=== PATIENT | female | born 1935 | race Caucasian/White ===

== ENCOUNTER 2023-05-19 16:25 | Observation (INO) | payer OTHER, BC ==
[2023-05-19 17:40] LABS: EPITHELIAL CELLS 0-5 /hpf; URIC ACID CRYSTALS FEW /hpf (NONE SEEN)
[2023-05-19 18:10] LABS: HEMATOCRIT 33.6 % (32.4-45.2); HEMOGLOBIN 11.5 G/dL (10.7-15.3); MCH 31.6 pg (25.7-33.7); MCHC 34.1 g/dl (32.0-36.0); MEAN CELL VOLUME 92.5 fl (80-96); MEAN PLT VOLUME 9.9 fl (7.5-11.1); PLATELET COUNT 144.6 10^3/uL (134-434); RBC 3.63 10^6/uL (3.60-5.2); RDW 13.6 % (11.6-15.6); WHITE BLOOD COUNT 5.2 10^3/uL (4.0-10.8)
[2023-05-19 18:22] LABS: ALBUMIN 3.5 g/dl (3.4-5.0); BILIRUBIN,TOTAL 0.3 mg/dl (0.2-1); CALCIUM 9.1 mg/dl (8.5-10.1); POTASSIUM 4.1 mmol/L (3.5-5.1)
[2023-05-19 18:34] LABS: PLATELET ESTIMATE ADEQUATE
[2023-05-19] MEDS ORDERED: ASPIRIN 81 MG CHEWABLE TABLETS PO ONE (18:52)
[2023-05-19] MEDS ORDERED: ASPIRIN 81 MG CHEWABLE TABLETS ONE (19:19)
[2023-05-19 22:49] VITALS: RESP 18; BMI 20.7
[2023-05-20] MEDS: LEVOTHYROXINE NA 125 MCG TABLET (FP) PO SCH (06:35)
[2023-05-20 09:18] LABS: CALCIUM 8.8 mg/dl (8.5-10.1); CREATININE 0.9 mg/dl (0.6-1.3)
[2023-05-20 09:20] LABS: BASO % 0.5 % (0-2.0); EOS % 3.7 % (0-4.5); HEMATOCRIT 32.6 % (32.4-45.2); HEMOGLOBIN 10.9 GM/dL (10.7-15.3); LYMPH % 14.5 % (8-40); MCHC 33.5 g/dl (32.0-36.0); MEAN CELL VOLUME 92.4 fl (80-96); MEAN PLT VOLUME 10.5 fl (7.5-11.1); NEUT % 67.3 % (42.8-82.8); PLATELET COUNT 150 10^3/uL (134-434); RBC 3.53 M/mm3 (3.60-5.2); RDW 12.3 % (11.6-15.6); WHITE BLOOD COUNT 5.2 K/mm3 (4.0-10.0)
[2023-05-20] MEDS ORDERED: amLODIPine BESYLATE 2.5 MG TABLET (FP) PO SCH (10:00)
[2023-05-20] MEDS: ESCITALOPRAM OXALATE 10 MG TABLET PO SCH (10:14)
[2023-05-20] MEDS: OXYBUTYNIN CHLORIDE 5 MG TABLET PO SCH ×2 (10:14→21:01)
[2023-05-20] MEDS: ASPIRIN 81 MG CHEWABLE TABLETS PO SCH (10:14)
[2023-05-20] MEDS ORDERED: DONEPEZIL HCL 10 MG TABLET (FP) PO SCH (22:00)
[2023-05-20] MEDS ORDERED: ATORVASTATIN CA 40 MG TABLET (FP) PO SCH (22:00)
[2023-05-21 06:25] VITALS: PULSE 62
[2023-05-21] MEDS: LEVOTHYROXINE NA 125 MCG TABLET (FP) PO SCH (06:45)
[2023-05-21] MEDS: OXYBUTYNIN CHLORIDE 5 MG TABLET PO SCH (09:22)
[2023-05-21] MEDS: ASPIRIN 81 MG CHEWABLE TABLETS PO SCH (09:22)
[2023-05-21] MEDS: ESCITALOPRAM OXALATE 10 MG TABLET PO SCH (09:22)
[2023-05-21 11:35] VITALS: BP 136/58; TEMP 98.6
== END 2023-05-21 13:04 | disposition home or self-care (01) ==
LOC: FER 16:25 → UNDOADMOB 19:14 → FM/S 19:14
PROVIDERS: ADMIT Internal Medicine
DX: F03.90 Unspecified dementia, unspecified severity, without behavioral disturbance, psychotic disturbance, mood disturbance, and anxiety (principal); R79.89 Other specified abnormal findings of blood chemistry; I10 Essential (primary) hypertension; E03.9 Hypothyroidism, unspecified; R53.1 Weakness
CPT/HCPCS: 36415; 71046-TC-FY; 80048; 80053; 81003; 81015; 84484; 85025; 85027; 87086; 93005; 93306-TC; 97116-GP; 97162-GP; 99285-25; G0378

== ENCOUNTER 2024-05-11 01:07 | Inpatient (IN) | payer OTHER, BC ==
[2024-05-11] MEDS ORDERED: ACETAMINOPHEN 325 MG TABLET (FP) ONE (02:40)
[2024-05-11] MEDS: ACETAMINOPHEN 500 MG TABLET (FP) PO ONE (02:53)
[2024-05-11] MEDS: LIDOCAINE 4% PATCH TP ONE (02:53)
[2024-05-11 06:16] LABS: POTASSIUM 3.7 mmol/L (3.5-5.1)
[2024-05-11 06:18] LABS: ALBUMIN 3.2 g/dl (3.4-5.0); BLOOD UREA NITROGEN 28.8 mg/dL (7-18); CALCIUM 9.2 mg/dL (8.5-10.1)
[2024-05-11 06:23] LABS: BILIRUBIN,TOTAL 0.4 mg/dL (0.2-1); CREATININE 0.9 mg/dL (0.55-1.3); TOT PROT 6.5 g/dl (6.4-8.2)
[2024-05-11 06:51] LABS: BASO % 0.2 % (0-2.0); EOS % 0.3 % (0-4.5); HEMATOCRIT 37.3 % (32.4-45.2); HEMOGLOBIN 12.4 GM/dL (10.7-15.3); LYMPH % 17.7 % (8-40); MCH 31.5 pg (25.7-33.7); MCHC 33.3 g/dl (32.0-36.0); MEAN CELL VOLUME 94.8 fl (80-96); MEAN PLT VOLUME 9.7 fl (7.5-11.1); MONO % 6.8 % (3.8-10.2); PLATELET COUNT 175 10^3/uL (134-434); RBC 3.94 M/mm3 (3.60-5.2); RDW 12.4 % (11.6-15.6)
[2024-05-11] MEDS: ENOXAPARIN NA (PORCINE) 40 MG/0.4 ML DISP.SYRIN SQ SCH (10:26)
[2024-05-11] MEDS: LEVOTHYROXINE NA 112 MCG TABLET (FP) PO SCH (10:26)
[2024-05-11] MEDS: OXYBUTYNIN CHLORIDE 5 MG TABLET PO SCH (10:26)
[2024-05-11] MEDS: amLODIPine BESYLATE 2.5 MG TABLET (FP) PO SCH (10:26)
[2024-05-11] MEDS ORDERED: ACETAMINOPHEN 1000 MG/100 ML BAG IVPB PRN (10:26)
[2024-05-11 14:52] VITALS: BMI 21.4
[2024-05-11 19:40] LABS: EPI CELLS 3 /uL (0-25.1); HYALINE CASTS 0 /uL (0-3.1); PH,URINE 6.5 (5.0-8.0); URINE APPEARANCE CLEAR; URINE BACTERIA 78 /uL (0-1359); URINE BILIRUBIN NEGATIVE (NEGATIVE); URINE COLOR YELLOW; URINE GLUCOSE (UA) NEGATIVE (NEGATIVE); URINE KETONE NEGATIVE (NEGATIVE); URINE LEUK ESTERASE 1+ (NEGATIVE); URINE NITRITE NEGATIVE (NEGATIVE); URINE PROTEIN 1+ (NEGATIVE); URINE UROBILINOGEN 0.2 mg/dL (0.2-1.0); URINE WBC 4 /uL (0-25.8)
[2024-05-11 20:41] LABS: URINE RBC 156.3 /uL (0-23.9)
[2024-05-11] MEDS: ATORVASTATIN CA 40 MG TABLET (FP) PO SCH (22:16)
[2024-05-11] MEDS: LIDOCAINE PATCH REMOVAL MC SCH (22:16)
[2024-05-12 08:45] LABS: HEMATOCRIT 36.4 % (32.4-45.2); HEMOGLOBIN 12.6 GM/dL (10.7-15.3); MCH 31.9 pg (25.7-33.7); MCHC 34.7 g/dl (32.0-36.0); MEAN CELL VOLUME 91.8 fl (80-96); MEAN PLT VOLUME 9.4 fl (7.5-11.1); PLATELET COUNT 174 10^3/uL (134-434); RBC 3.96 M/mm3 (3.60-5.2); RDW 12.4 % (11.6-15.6); WHITE BLOOD COUNT 6.9 K/mm3 (4.0-10.0)
[2024-05-12 09:08] LABS: ALBUMIN 2.9 g/dl (3.4-5.0); BLOOD UREA NITROGEN 14.6 mg/dL (7-18); CALCIUM 8.8 mg/dL (8.5-10.1); MAGNESIUM 1.8 mg/dL (1.8-2.4)
[2024-05-12 09:11] LABS: CREATININE 0.8 mg/dL (0.55-1.3); PHOSPHOROUS 2.2 mg/dL (2.5-4.9)
[2024-05-12 09:13] LABS: BILIRUBIN,TOTAL 0.8 mg/dL (0.2-1); TOT PROT 6.2 g/dl (6.4-8.2)
[2024-05-12] MEDS ORDERED: ACETAMINOPHEN 1000 MG/100 ML BAG IVPB PRN (10:21)
[2024-05-12] MEDS: ACETAMINOPHEN 1000 MG/100 ML BAG IVPB SCH (12:39)
[2024-05-12] MEDS: CEFTRIAXONE 1 G/50 ML PREMIX 50 ML IVPB SCH (19:22)
[2024-05-13 08:27] LABS: HEMATOCRIT 39.1 % (32.4-45.2); HEMOGLOBIN 13.4 GM/dL (10.7-15.3); MCH 31.6 pg (25.7-33.7); MCHC 34.2 g/dl (32.0-36.0); MEAN CELL VOLUME 92.2 fl (80-96); MEAN PLT VOLUME 9.4 fl (7.5-11.1); PLATELET COUNT 167 10^3/uL (134-434); RBC 4.24 M/mm3 (3.60-5.2); RDW 12.6 % (11.6-15.6)
[2024-05-13 09:21] LABS: CALCIUM 9.1 mg/dL (8.5-10.1)
[2024-05-13 09:22] LABS: ALBUMIN 2.9 g/dl (3.4-5.0); BLOOD UREA NITROGEN 17.7 mg/dL (7-18)
[2024-05-13 09:26] LABS: BILIRUBIN,TOTAL 0.7 mg/dL (0.2-1)
[2024-05-13 09:27] LABS: TOT PROT 6.6 g/dl (6.4-8.2)
[2024-05-13 11:53] LABS: PHOSPHOROUS 2.4 mg/dL (2.5-4.9)
[2024-05-14 07:25] LABS: HEMATOCRIT 36.5 % (32.4-45.2); HEMOGLOBIN 12.2 GM/dL (10.7-15.3); MCHC 33.4 g/dl (32.0-36.0); MEAN CELL VOLUME 92.9 fl (80-96); MEAN PLT VOLUME 9.3 fl (7.5-11.1); PLATELET COUNT 175 10^3/uL (134-434); RBC 3.93 M/mm3 (3.60-5.2); RDW 12.2 % (11.6-15.6); WHITE BLOOD COUNT 5.5 K/mm3 (4.0-10.0)
[2024-05-14 07:36] LABS: POTASSIUM 3.9 mmol/L (3.5-5.1)
[2024-05-14 07:50] LABS: CALCIUM 8.8 mg/dL (8.5-10.1)
[2024-05-14 07:51] LABS: ALBUMIN 2.7 g/dl (3.4-5.0); BLOOD UREA NITROGEN 21.1 mg/dL (7-18)
[2024-05-14 07:52] LABS: BILIRUBIN,TOTAL 0.6 mg/dL (0.2-1)
[2024-05-14 07:53] LABS: CREATININE 0.9 mg/dL (0.55-1.3)
[2024-05-14 07:56] LABS: TOT PROT 6.2 g/dl (6.4-8.2)
[2024-05-15 11:23] VITALS: BP 133/57; PULSE 70; RESP 18; TEMP 98.4
== END 2024-05-15 17:33 | DRG 552 ==
LOC: JER 01:07 → JERBED 07:34 → J7W 09:25 → OBSVTOIN 05-12 13:57
PROVIDERS: ADMIT Internal Medicine
DX: S22.080A Wedge compression fracture of T11-T12 vertebra, initial encounter for closed fracture (principal); I10 Essential (primary) hypertension; E03.9 Hypothyroidism, unspecified; F03.90 Unspecified dementia, unspecified severity, without behavioral disturbance, psychotic disturbance, mood disturbance, and anxiety; W19.XXXA Unspecified fall, initial encounter; Y93.9 Activity, unspecified; Y92.89 Other specified places as the place of occurrence of the external cause; Y99.9 Unspecified external cause status
CPT/HCPCS: 36415; 71045-TC-FY; 72100-TC-FY; 72131-TC; 72170-TC-FY; 72192-TC; 80053; 80061; 81003; 83036; 83735; 84100; 84436; 84439; 84443; 84480; 85025; 85027; 87086; 93005; 93010; 97116-GP; 97161-GP; 99285-25; G0378

== ENCOUNTER 2024-10-28 07:27 | Day surgery (SDC) | payer OTHER, BC ==
[2024-10-21 17:00] VITALS: BMI 19.8
[2024-10-28 09:51] VITALS: TEMP 97.6
[2024-10-28] MEDS: LIDOCAINE HCL 1% PRESERVATIVE FREE - 30ML VIAL IJ ONE (10:33)
[2024-10-28] MEDS: BUPIVACAINE HCL/PF 0.75% 10 ML VIAL NR ONE (10:37)
[2024-10-28 11:02] VITALS: BP 144/60; PULSE 64; RESP 18
[2024-10-28] MEDS ORDERED: ACETAMINOPHEN 500 MG TABLET (FP) ONE (11:09)
[2024-10-28] MEDS: ACETAMINOPHEN 500 MG TABLET (FP) PO PRN (11:19)
== END 2024-10-28 11:35 | disposition home or self-care (01) ==
LOC: JASU-SURG 07:27
PROVIDERS: ATTEND Pain Medicine Pain Medicine
PROC: 3E0T33Z Introduction of Anti-inflammatory into Peripheral Nerves and Plexi, Percutaneous Approach (ICD-10-PCS; 2024-10-28)
PROC: 3E0T3BZ Introduction of Anesthetic Agent into Peripheral Nerves and Plexi, Percutaneous Approach (ICD-10-PCS; principal; 2024-10-28 10:15)
DX: M47.816 Spondylosis without myelopathy or radiculopathy, lumbar region (principal)
CPT/HCPCS: 76000-TC-FY

== ENCOUNTER 2024-11-19 06:32 | Day surgery (SDC) | payer OTHER, BC ==
[2024-11-19] MEDS ORDERED: SODIUM CHLORIDE 0.9% P/F 10 ML VIAL IJ ONE (07:23)
[2024-11-19] MEDS ORDERED: LIDOCAINE HCL/PF 1% SDV 5ML VIAL ONE (07:49)
[2024-11-19 10:47] VITALS: BP 159/65; PULSE 58; RESP 18; TEMP 97.9
[2024-11-19] MEDS ORDERED: ACETAMINOPHEN 500 MG TABLET (FP) PO PRN (13:41)
== END 2024-11-19 11:10 | disposition home or self-care (01) ==
LOC: JASU-SURG 06:32
PROVIDERS: ATTEND Pain Medicine Pain Medicine
PROC: 3E0T33Z Introduction of Anti-inflammatory into Peripheral Nerves and Plexi, Percutaneous Approach (ICD-10-PCS; 2024-11-19)
PROC: 3E0T3BZ Introduction of Anesthetic Agent into Peripheral Nerves and Plexi, Percutaneous Approach (ICD-10-PCS; principal; 2024-11-19 10:04)
DX: M47.816 Spondylosis without myelopathy or radiculopathy, lumbar region (principal)
CPT/HCPCS: 76000-TC-FY

== ENCOUNTER 2024-12-07 05:44 | Inpatient (IN) | payer OTHER, BC ==
[2024-12-07 05:51] VITALS: BMI 23.6
[2024-12-07] MEDS ORDERED: ACETAMINOPHEN INJECTION 100 ML ONE (06:08)
[2024-12-07] MEDS: ACETAMINOPHEN 1000 MG/100 ML BAG IVPB ONE (06:42)
[2024-12-07 07:03] LABS: ABSOLUTE IMMATURE GRANULOCYTES 0.03 x10^3/uL (0.0-0.031); BASOPHILS # 0.04 x10^3/uL (0.01-0.08); EOSINOPHIL % 0.5 % (0.7-5.8); EOSINOPHILS # 0.04 x10^3/uL (0.04-0.36); MCHC 32.2 g/dl (32.2-35.5); MEAN CELL VOLUME 96.2 fl (79.4-94.8); MEAN PLT VOLUME 10.2 fl (9.4-12.3); MONOCYTE # 0.39 x10^3/uL (0.24-0.86); MONOCYTE % 4.7 % (4.7-12.5); RDW 12.3 % (12.5-17.0)
[2024-12-07 07:05] LABS: GLUCOSE,RANDOM 103.0 mg/dL (74-106); TOT PROT 8.6 g/dl (6.4-8.2)
[2024-12-07 07:07] LABS: CO2 28.0 mmol/L (21-32)
[2024-12-07 07:08] LABS: ALK PHOS 94.0 U/L (40-150)
[2024-12-07 07:11] LABS: CREATININE 1.0 mg/dL (0.55-1.3); SGOT/AST 42.0 U/L (5-34); SGPT/ALT 36.0 U/L (0-55)
[2024-12-07 08:04] LABS: URINE APPEARANCE CLEAR; URINE BILIRUBIN NEGATIVE (NEGATIVE); URINE COLOR YELLOW; URINE GLUCOSE (UA) NEGATIVE (NEGATIVE); URINE KETONE NEGATIVE (NEGATIVE); URINE LEUK ESTERASE NEGATIVE (NEGATIVE); URINE NITRITE NEGATIVE (NEGATIVE); URINE PROTEIN NEGATIVE (NEGATIVE); URINE UROBILINOGEN 0.2 mg/dL (0.2-1.0)
[2024-12-07 10:40] LABS: HCV DIAGNOSTIC IN-HOUSE W/RFLX NON-REACTIVE (NONREACTIVE)
[2024-12-07 12:00] LABS: HIV INTERPRETATION PRESUMPTIVE POSITIVE (NEGATIVE)
[2024-12-07] MEDS: LACTATED RINGERS SOLUTION 1,000 ML/1,000 ML INFUS.BAG IV SCH (16:17)
[2024-12-07] MEDS ORDERED: ATORVASTATIN CA 40 MG TABLET (FP) ONE (23:59)
[2024-12-08] MEDS: ATORVASTATIN CA 40 MG TABLET (FP) PO SCH (00:02)
[2024-12-08] MEDS: LEVOTHYROXINE NA 88 MCG TABLET (FP) PO SCH (06:18)
[2024-12-08 08:24] LABS: ABSOLUTE IMMATURE GRANULOCYTES 0.01 x10^3/uL (0.0-0.031); BASOPHILS # 0.04 x10^3/uL (0.01-0.08); EOSINOPHIL % 4.0 % (0.7-5.8); EOSINOPHILS # 0.23 x10^3/uL (0.04-0.36); MCHC 31.9 g/dl (32.2-35.5); MEAN CELL VOLUME 95.9 fl (79.4-94.8); MEAN PLT VOLUME 10.7 fl (9.4-12.3); MONOCYTE # 0.56 x10^3/uL (0.24-0.86); MONOCYTE % 9.8 % (4.7-12.5); RDW 12.3 % (12.5-17.0)
[2024-12-08 09:09] LABS: GLUCOSE,RANDOM 80.0 mg/dL (74-106)
[2024-12-08 09:10] LABS: TOT PROT 7.1 g/dl (6.4-8.2)
[2024-12-08 09:11] LABS: CO2 28.0 mmol/L (21-32)
[2024-12-08 09:15] LABS: CREATININE 0.99 mg/dL (0.55-1.3); SGOT/AST 32.0 U/L (5-34); SGPT/ALT 22.0 U/L (0-55)
[2024-12-08 09:30] LABS: ALK PHOS 72.0 U/L (40-150)
[2024-12-08] MEDS: OXYBUTYNIN CHLORIDE 5 MG TABLET PO SCH (09:50)
[2024-12-08] MEDS: ESCITALOPRAM OXALATE 10 MG TABLET PO SCH (09:50)
[2024-12-08] MEDS: ACETAMINOPHEN 1000 MG/100 ML BAG IVPB PRN (15:52)
[2024-12-08] MEDS: morphine CARPU-JECT 2 MG/1 ML DISP.SYRIN IVPUSH PRN (16:36)
[2024-12-08] MEDS: DONEPEZIL HCL 10 MG TABLET (FP) PO SCH (21:52)
[2024-12-08] MEDS: MIRTAZAPINE 15 MG TABLET (FP) PO SCH (21:53)
[2024-12-09] MEDS ORDERED: OXYBUTYNIN CHLORIDE 5 MG TABLET PO ONE (06:00)
[2024-12-09 08:43] LABS: MCHC 31.5 g/dl (32.2-35.5); MEAN CELL VOLUME 96.8 fl (79.4-94.8); MEAN PLT VOLUME 10.4 fl (9.4-12.3); RDW 12.4 % (12.5-17.0)
[2024-12-09 09:38] LABS: GLUCOSE,RANDOM 87.0 mg/dL (74-106)
[2024-12-09 09:43] LABS: CREATININE 1.56 mg/dL (0.55-1.3)
[2024-12-09 09:47] LABS: CO2 26.0 mmol/L (21-32)
[2024-12-09] MEDS ORDERED: PATIENT'S OWN MEDICATION (NON-FORMULARY) (Oxybutynin Chloride [Oxybutynin Chloride Er] 5 M PO SCH (10:00)
[2024-12-09] MEDS: ENOXAPARIN NA (PORCINE) 40 MG/0.4 ML DISP.SYRIN SQ SCH (10:04)
[2024-12-09] MEDS: ASPIRIN 81 MG CHEWABLE TABLETS PO SCH (10:04)
[2024-12-09] MEDS: OXYBUTYNIN CHLORIDE 5 MG TABLET PO SCH (10:04)
[2024-12-09] MEDS: LACTATED RINGERS SOLUTION 1,000 ML/1,000 ML INFUS.BAG IV SCH (21:27)
[2024-12-10 09:47] LABS: GLUCOSE,RANDOM 87.0 mg/dL (74-106); TOT PROT 7.1 g/dl (6.4-8.2)
[2024-12-10 09:48] LABS: CO2 27.0 mmol/L (21-32)
[2024-12-10 09:50] LABS: ALK PHOS 73.0 U/L (40-150)
[2024-12-10 09:53] LABS: CREATININE 1.12 mg/dL (0.55-1.3); SGOT/AST 32.0 U/L (5-34); SGPT/ALT 21.0 U/L (0-55)
[2024-12-10 11:27] LABS: MCHC 31.8 g/dl (32.2-35.5); MEAN CELL VOLUME 96.4 fl (79.4-94.8); MEAN PLT VOLUME 10.3 fl (9.4-12.3); RDW 12.2 % (12.5-17.0)
[2024-12-12 08:48] LABS: MCHC 31.1 g/dl (32.2-35.5); MEAN CELL VOLUME 98.0 fl (79.4-94.8); MEAN PLT VOLUME 10.7 fl (9.4-12.3); RDW 12.4 % (12.5-17.0)
[2024-12-12 09:04] LABS: TOT PROT 6.3 g/dl (6.4-8.2)
[2024-12-12 09:05] LABS: CO2 30.0 mmol/L (21-32)
[2024-12-12 09:06] LABS: ALK PHOS 66.0 U/L (40-150); GLUCOSE,RANDOM 89.0 mg/dL (74-106)
[2024-12-12 09:09] LABS: CREATININE 1.16 mg/dL (0.55-1.3); SGOT/AST 30.0 U/L (5-34); SGPT/ALT 16.0 U/L (0-55)
[2024-12-12] MEDS: TOLTERODINE TARTRATE LA 2 MG CAP.SR.24H PO SCH (09:28)
[2024-12-13 12:04] VITALS: BP 140/60; PULSE 61; RESP 19; TEMP 98.1
== END 2024-12-13 13:59 | DRG 605 ==
LOC: JER 05:44 → JERBED 10:15 → OBSVTOIN 10:15 → J4S 12-08 02:53
PROVIDERS: ADMIT Internal Medicine; ATTEND Internal Medicine
DX: S70.02XA Contusion of left hip, initial encounter (principal); M47.816 Spondylosis without myelopathy or radiculopathy, lumbar region; I10 Essential (primary) hypertension; E03.9 Hypothyroidism, unspecified; F03.90 Unspecified dementia, unspecified severity, without behavioral disturbance, psychotic disturbance, mood disturbance, and anxiety; N32.81 Overactive bladder; E78.5 Hyperlipidemia, unspecified; N39.498 Other specified urinary incontinence; E86.0 Dehydration; W19.XXXA Unspecified fall, initial encounter; Y93.89 Activity, other specified; Y92.008 Other place in unspecified non-institutional (private) residence as the place of occurrence of the external cause; Y99.8 Other external cause status
CPT/HCPCS: 36415; 70450-TC; 71045-TC-FY; 72125-TC; 72131-TC; 72170-TC-FY; 73502-TC-LT-FY; 74176-TC; 80048; 80053; 81003; 83735; 84100; 84484; 85025; 85027; 85730; 86359; 86360; 86803; 86850; 86900; 86901; 87086; 87389; 87536; 93005; 93010; 93971-TC-RT; 97116-GP; 97161-GP; 99285-25